=== PATIENT | male | born 1970 | race Caucasian/White ===

== ENCOUNTER 2019-11-22 09:41 | Outpatient (CLI) | payer OTHER, SELFPAY ==
--- NOTE | 2019-11-22 09:48 | EST_ITS ---
Patient Info Name: Everette Moy Age: 49 years : 1970 Gender: Male Ht: 75 in Wt: 272 lbs BSA: 2.59 m2 Technical Quality: Good Exam Date: 11/22/2019 11:21 AM Exam Location: [facility] [facility] Patient Status: Outpatient Admit Date: 11/22/2019 Staff Ordering Physician: Tomasa Ramon NP Complaint Adjuster: Tamar Mccann RDCS Attending Provider: JUSTA SO DO Referring Physician: Yenny CEE; Exam Type: CA stress echo Study Info Indications R06.00 - Dyspnea, unspecified Treadmill exercise stress echocardiogram is performed. Summary 1. 1. Negative Ke exercise stress test for ischemic ST changes by ECG criteria. 2. 2. Reduced functional capacity, achieving 10 METs of workload. 3. 3. Appropriate HR response to exercise. 4. 4. Appropriate HR recovery at 1 minute post exercise. 5. 5. Negative stress echocardiogram for ischemia by wall motion analysis. 6. 6. Patient informed of the above results. Stress Echo Findings Left Ventricle Appropriate increase in LV endocardial thickening with systole. Appropriate augmentation of contractility with systole. No wall motion abnormality. Left Ventricle Normal LV systolic function, no wall motion abnormality. Protocol: Ke Stress ECG Details Stage: REST Duration (min): 5 min : 19 sec Speed (mph): 0.0 Grade (%): 0 HR (bpm): 64 SBP (mmHg): 126 DBP (mmHg): 82 METS: --- Stage: REST Duration (min): 16 min : 4 sec Speed (mph): 0.0 Grade (%): 0 HR (bpm): 70 SBP (mmHg): 126 DBP (mmHg): 82 METS: --- Stage: STAGE 1 Duration (min): 1 min : 0 sec Speed (mph): 1.7 Grade (%): 10 HR (bpm): 100 SBP (mmHg): 126 DBP (mmHg): 82 METS: --- Stage: STAGE 1 Duration (min): 2 min : 0 sec Speed (mph): 1.7 Grade (%): 10 HR (bpm): 109 SBP (mmHg): 126 DBP (mmHg): 82 METS: --- Stage: STAGE 1 Duration (min): 3 min : 0 sec Speed (mph): 1.7 Grade (%): 10 HR (bpm): 113 SBP (mmHg): 163 DBP (mmHg): 112 METS: --- Stage: STAGE 2 Duration (min): 1 min : 0 sec Speed (mph): 2.5 Grade (%): 12 HR (bpm): 118 SBP (mmHg): 163 DBP (mmHg): 112 METS: --- Stage: STAGE 2 Duration (min): 2 min : 0 sec Speed (mph): 2.5 Grade (%): 12 HR (bpm): 127 SBP (mmHg): 189 DBP (mmHg): 103 METS: --- Stage: STAGE 2 Duration (min): 3 min : 0 sec Speed (mph): 2.5 Grade (%): 12 HR (bpm): 135 SBP (mmHg): 189 DBP (mmHg): 103 METS: --- Stage: STAGE 3 Duration (min): 1 min : 0 sec Speed (mph): 3.4 Grade (%): 14 HR (bpm): 148 SBP (mmHg): 193 DBP (mmHg): 83 METS: --- Stage: STAGE 3 Duration (min): 2 min : 0 sec Speed (mph): 3.4 Grade (%): 14 HR (bpm): 157 SBP (mmHg): 193 DBP (mmHg): 83 METS: --- Stage: STAGE 3 Duration (min): 2 min : 1 sec Speed (mph): 0.0 Grade (%): 0 HR (bpm): 157 SBP (mmHg): 193 DBP (mmHg): 8
== END 2019-11-22 09:42 | disposition home or self-care (01) ==
LOC: ANHCARD 09:42
PROVIDERS: PCP Internal Medicine; Visit Provider Nurse Practitioner
DX: R06.00 Dyspnea, unspecified (principal)
CPT/HCPCS: 93351

== ENCOUNTER 2021-09-30 10:09 | Outpatient (CLI) | payer OTHER, SELFPAY ==
[2021-09-30 19:28] LABS: Basophils Percent Auto 0.6 % (0.2-1.2); Eosinophils Absolute Auto 0.1 K/mm3 (0-0.3); Eosinophils Percent Auto 1.5 % (0-4.4); Hematocrit 46.5 % (42.0-52.0); Hemoglobin 15.5 g/dL (14.0-18.0); Immature Granulocyte Absolute 0.03 K/mm3 (0.00-0.031); Immature Granulocyte Percent A 0.5 % (0-0.5); Lymphocytes Absolute Auto 1.93 K/mm3 (0.9-3.2); Lymphocytes Percent Auto 29.2 % (18.3-44.2); Mean Corpuscular HGB Conc 33.3 g/dl (32-36); Mean Corpuscular Hemoglobin 31.1 pg (26-34); Mean Corpuscular Volume 93.2 fl (80-100); Mean Platelet Volume 11.2 fl (7.4-10.4); Monocytes Absolute Auto 0.7 K/mm3 (0.1-0.6); Neutrophils Absolute Auto 3.8 K/mm3 (1.3-6.7); Neutrophils Percent Auto 58.2 % (45.5-73.1); Platelet Count Result 230 k/mm3 (150-375); Red Blood Count 4.99 M/mm3 (4.6-6.20); Red Cell Distribution Width 13.5 % (11.5-14.5); White Blood Count 6.6 K/mm3 (4.5-10.0)
[2021-09-30 21:25] LABS: Alanine Aminotransferase 28 U/L (6-50); Albumin Level 4.4 g/dL (3.5-5.1); Alkaline Phosphatase 59 U/L (38-126); Anion Gap 8 mmol/L (8-16); Aspartate Amino Transferase 28 U/L (17-59); Bilirubin,Total 0.6 mg/dL (0.2-1.3); Blood Urea Nitrogen 12 mg/dL (9-20); Calcium 9.2 mg/dL (8.4-10.2); Carbon Dioxide 28 mmol/L (22-30); Chloride 100 mmol/L (98-107); Cholesterol 231 mg/dL (0-200); Estimated Glomerular Filt Rate > 60; Glucose 103 mg/dL (65-110); HDL Direct 51 mg/dL; Potassium 4.7 mmol/L (3.4-5.0); Sodium 136 mmol/L (137-145); Triglycerides 80 mg/dL (<150)
[2021-09-30 21:36] LABS: LDL Cholesterol Direct 151 mg/dL
[2021-09-30 21:54] LABS: Prostate Specific Antigen 1.4 ng/mL (< OR = 4.0)
== END 2021-09-30 10:10 | disposition home or self-care (01) ==
LOC: ANHGOSHLAB 10:11
PROVIDERS: PCP Internal Medicine; Visit Provider Clinical Nurse Specialist
DX: E78.5 Hyperlipidemia, unspecified (principal); I10 Essential (primary) hypertension; Z12.5 Encounter for screening for malignant neoplasm of prostate
CPT/HCPCS: 36415; 80053; 80061; 84153; 85025; G0103

== ENCOUNTER → 2022-08-11 13:22 | Outpatient (CLI) | payer OTHER, SELFPAY ==
--- NOTE | ~2022-08-11 | XR_ITS ---
EXAMINATION: XR knee LT 3V DATE: 08/11/2022 13:34 INDICATION: Left knee pain TECHNIQUE: Three views of the left knee were obtained. COMPARISON: None. FINDINGS: Alignment is normal. No fracture or osteochondral lesion. There is mild tricompartmental os teoarthritis characterized by tiny marginal osteophytes. No joint effusion/synovitis. Soft tissues a re unremarkable. IMPRESSION: 1. No acute osseous abnormality. Reviewed, dictated and finalized at location F.
== END ==
PROVIDERS: PCP Clinical Nurse Specialist; Visit Provider Clinical Nurse Specialist
DX: M25.562 Pain in left knee (principal)
CPT/HCPCS: 73562

== ENCOUNTER 2023-05-19 08:47 | Outpatient (CLI) | payer OTHER, SELFPAY ==
[2023-05-19 14:47] LABS: Alanine Aminotransferase 36 U/L (6-50); Albumin Level 4.1 g/dL (3.5-5.1); Alkaline Phosphatase 63 U/L (38-126); Anion Gap 5 mmol/L (8-16); Aspartate Amino Transferase 66 U/L (17-59); Bilirubin,Total 0.6 mg/dL (0.2-1.3); Blood Urea Nitrogen 12 mg/dL (9-20); Calcium 9.4 mg/dL (8.4-10.2); Carbon Dioxide 27 mmol/L (22-30); Chloride 102 mmol/L (98-107); Cholesterol 211 mg/dL (0-200); Estimated Glomerular Filt Rate > 60; Glucose 101 mg/dL (65-110); HDL Direct 43 mg/dL; Potassium 4.3 mmol/L (3.4-5.0); Sodium 134 mmol/L (137-145); Triglycerides 155 mg/dL (<150)
[2023-05-19 15:03] LABS: Basophils Percent Auto 0.6 % (0.2-1.2); Eosinophils Absolute Auto 0.1 K/mm3 (0-0.3); Eosinophils Percent Auto 1.5 % (0-4.4); Hematocrit 47.7 % (42.0-52.0); Hemoglobin 15.3 g/dL (14.0-18.0); Immature Granulocyte Absolute 0.01 K/mm3 (0.00-0.031); Immature Granulocyte Percent A 0.2 % (0-0.5); Lymphocytes Absolute Auto 2.05 K/mm3 (0.9-3.2); Lymphocytes Percent Auto 31.6 % (18.3-44.2); Mean Corpuscular HGB Conc 32.1 g/dl (32-36); Mean Corpuscular Hemoglobin 29.6 pg (26-34); Mean Corpuscular Volume 92.3 fl (80-100); Mean Platelet Volume 10.9 fl (7.4-10.4); Monocytes Absolute Auto 0.7 K/mm3 (0.1-0.6); Monocytes Percent Auto 10.2 % (2.6-8.5); Neutrophils Absolute Auto 3.6 K/mm3 (1.3-6.7); Neutrophils Percent Auto 55.9 % (45.5-73.1); Platelet Count Result 224 k/mm3 (150-375); Red Blood Count 5.17 M/mm3 (4.6-6.20); Red Cell Distribution Width 13.2 % (11.5-14.5); White Blood Count 6.5 K/mm3 (4.5-10.0)
[2023-05-19 15:09] LABS: Prostate Specific Antigen 1.3 ng/mL (< OR = 4.0)
[2023-05-19 15:26] LABS: LDL Cholesterol Direct 125 mg/dL
== END 2023-05-19 08:48 | disposition home or self-care (01) ==
LOC: ANHGOSHLAB 08:49
PROVIDERS: PCP Clinical Nurse Specialist; Visit Provider Nurse Practitioner
DX: Z12.5 Encounter for screening for malignant neoplasm of prostate (principal); I10 Essential (primary) hypertension; R53.83 Other fatigue; Z13.29 Encounter for screening for other suspected endocrine disorder
CPT/HCPCS: 36415; 80053; 80061; 84153; 84443; 85025; G0103